=== PATIENT | male | born 1945 | race Caucasian/White ===

== ENCOUNTER 2022-12-29 11:14 | Inpatient (IN) | payer MEDICARE ==
--- NOTE | 2022-12-29 12:17 | ED ---
General Adult HPI - General Chief complaint: Dizziness Stated complaint: SOB Time Seen by Provider: 12/29/22 11:20 Source: patient, family, EMS, RN notes reviewed Mode of arrival: EMS Limitations: no limitations - History of Present Illness Initial comments: 77-year-old male presents emergency Department with chief complaint of weakness. Patient states that he was trying to walk to a football game states he was so weak he couldn't lift his legs up over the curb. He states that he was short of breath. Patient has known CHF, vascular disease he has his right leg wrapped weekly bivascular them appear. Patient states that he always has pain pain is not usual for him at this time. Patient states he has noticed studies been feeling more tired and that he has not been able to sleep because of his leg pain and shortness of breath denies fevers chills cough cold like symptoms. - Related Data Allergies Allergy/AdvReac Type Severity Reaction Status Date / Time No Known Allergies Allergy Verified 12/29/22 11:40 Review of Systems ROS Statement: Those systems with pertinent positive or pertinent negative responses have been documented in the HPI. ROS Other: All systems not noted in ROS Statement are negative. Past Medical History Past Medical History: Chest Pain / Angina Additional Past Medical History / Comment(s): PAD,homeo2 PRN History of Any Multi-Drug Resistant Organisms: None Reported Past Psychological History: No Psychological Hx Reported Smoking Status: Never smoker Past Alcohol Use History: None Reported Past Drug Use History: None Reported General Exam Limitations: no limitations General appearance: alert, in no apparent distress Head exam: Present: atraumatic, normocephalic, normal inspection Eye exam: Present: normal appearance, PERRL, EOMI. Absent: scleral icterus, conjunctival injection, periorbital swelling ENT exam: Present: normal exam, normal oropharynx, mucous membranes moist Neck exam: Present: normal inspection, full ROM. Absent: tenderness, meningismus, lymphadenopathy Respiratory exam: Present: normal lung sounds bilaterally. Absent: respiratory distress, wheezes, rales, rhonchi, stridor Cardiovascular Exam: Present: regular rate, normal rhythm, normal heart sounds. Absent: systolic murmur, diastolic murmur, rubs, gallop, clicks Extremities exam: Present: other (Right leg is wrapped, there is notable Refill) Neurological exam: Present: alert, oriented X3, CN II-XII intact, reflexes normal. Absent: motor sensory deficit Course Vital Signs 12/29/22 12/29/22 12/29/22 11:21 11:30 12:00 Temperature 97.4 F L Pulse Rate 68 57 L 61 Respiratory 22 14 20 Rate Blood Pressure 124/72 124/72 129/73 O2 Sat by Pulse 93 L 98 98 Oximetry 12/29/22 12/29/22 12/29/22 12:30 13:00 13:30 Temperature Pulse Rate 61 66 70 Respiratory 20 18 19 Rate Blood Pressure 130/75 143/97 144/85 O2 Sat by Pulse 98 97 97 Oximetry EKG Findings - EKG Comments: EKG Findings:: EKG performed at 11:23 sinus bradycardia with rate of 56 [place] 225 QRS 97 QT/QTC 518/511 prolonged QT, first-degree block - EKG Results: EKG: interpreted by [facility] Medical Decision Making - Medical Decision Making Was pt. sent in by a medical professional or institution (, PA, ACADEMIC DEPARTMENT CHAIR, urgent care, hospital, or usp...) When possible be specific @ -[No] Did you speak to anyone other than the patient for history (EMS, parent, family, police, friend...)? What history was obtained from this source @ -[No] Did you review nursing and triage notes (agree or disagree)? Why? @ -[I reviewed and agree with nursing and triage notes] Were old charts reviewed (outside hosp., previous admission, EMS record, old EKG, old radiological studies, urgent care reports/EKG's, usp records)? Report findings @ -[No old charts were reviewed] Differential Diagnosis (chest pain, altered mental status, abdominal pain women, abdominal pain men, vaginal bleeding, weakness, fever, dyspnea, syncope, headache, dizziness, GI bleed, back pain, seizure, CVA, palpatations, mental health, musculoskeletal)? @ -[Differential Dyspnea: Coronary syndrome, arrhythmia, tamponade, asthma, COPD, pulmonary embolism, pneumonia, pneumothorax, pulmonary effusion, anaphylaxis, diabetic ketoacidosis, flailed chest, pulmonary contusion, diaphragmatic rupture, anemia, neuromuscular, this is not meant to be an all-inclusive list. ble] EKG interpreted by me (3pts min.). @ -[As above] X-rays interpreted by me (1pt min.). @ -[Chest x-ray shows pulmonary edema, pleural effusion] CT interpreted by me (1pt min.). @ -[None done] U/S interpreted by me (1pt. min.). @ -[None done] What testing was considered but not performed or refused? (CT, X-rays, U/S, labs)? Why? @ -[None] What meds were considered but not given or refused? Why? @ -[None] Did you discuss the management of the patient with other professionals (professionals i.e. , PA, ACADEMIC DEPARTMENT CHAIR, lab, RT, psych nurse, psychosocial rehabilitation counselor, neurology specialist, teacher, credit risk review officer, case reviewer)? Give summary @ -[Dr. Mijares for admission with cardiac consult] Was smoking cessation discussed for >3mins.? @ -[No] Was critical care preformed (if so, how long)? @ -[No] Were there social determinants of health that impacted care today? How? (Homelessness, low income, unemployed, alcoholism, drug addiction, transportation, low edu. Level, literacy, decrease access to med. care, longterm, rehab)? @ -[No] Was there de-escalation of care discussed even if they declined (Discuss DNR or withdrawal of care, Hospice)? DNR status @ -[No] What co-morbidities impacted this encounter? (DM, HTN, Smoking, COPD, CAD, Cancer, CVA, ARF, Chemo, Hep., AIDS, mental health diagnosis, sleep apnea, morbid obesity)? @ -[CHF, prefer that she'll disease] Was patient admitted / discharged? Hospital course, mention meds given and route, prescriptions, significant lab abnormalities, going to OR and other pertinent info. @ -[Admitted patient's found to have acute CHF exacerbation patient was started on Lasix. Patient will have consult to cardiology, echocardiogram. Patient's BMP is 19,500.] Undiagnosed new problem with uncertain prognosis? @ -[No] Drug Therapy requiring intensive monitoring for toxicity (Heparin, Nitro, Insulin, Cardizem)? @ -[No] Were any procedures done? @ -[No] Diagnosis/symptom? @ -[Acute CHF] Acute, or Chronic, or Acute on Chronic? @ -[Acute] Uncomplicated (without systemic symptoms) or Complicated (systemic symptoms)? @ -[, Complicated] Side effects of treatment? @ -[No] Exacerbation, Progression, or Severe Exacerbation? @ -[Exacerbation] Poses a threat to life or bodily function? How? (Chest pain, USA, SD, pneumonia, PE, COPD, DKA, ARF, appy, cholecystitis, CVA, Diverticulitis, Homicidal, Suicidal, threat to staff... and all critical care pts) @ -[Yes poses cardiac, respiratory risk - Lab Data Result diagrams: 12/29/22 12:11 12/29/22 12:11 Lab Results 12/29/22 12/29/22 12/29/22 Range/Units 12:11 12:11 12:11 WBC 7.3 (3.8-10.6) k/uL RBC 4.96 (4.30-5.90) m/uL Hgb 13.9 (13.0-17.5) gm/dL Hct 44.0 (39.0-53.0) % MCV 88.7 (80.0-100.0) fL MCH 28.0 (25.0-35.0) pg MCHC 31.5 (31.0-37.0) g/dL RDW 17.0 H (11.5-15.5) % Plt Count 144 L (150-450) k/uL MPV 11.7 Neutrophils % 80 % Lymphocytes % 7 % Monocytes % 8 % Eosinophils % 2 % Basophils % 0 % Neutrophils # 5.9 (1.3-7.7) k/uL Lymphocytes # 0.5 L (1.0-4.8) k/uL Monocytes # 0.6 (0-1.0) k/uL Eosinophils # 0.1 (0-0.7) k/uL Basophils # 0.0 (0-0.2) k/uL Hypochromasia Slight Anisocytosis Slight PT 13.0 H (9.0-12.0) sec INR 1.3 H (<1.2) APTT 28.9 (22.0-30.0) sec Sodium 141 (137-145) mmol/L Potassium 4.3 (3.5-5.1) mmol/L Chloride 109 H (98-107) mmol/L Carbon Dioxide 22 (22-30) mmol/L Anion Gap 10 mmol/L BUN 30 H (9-20) mg/dL Creatinine 1.42 H (0.66-1.25) mg/dL Est GFR (CKD-EPI)AfAm 56 (>60 ml/min/1.73 sqM) Est GFR (CKD-EPI)NonAf 48 (>60 ml/min/1.73 sqM) Glucose 116 H (74-99) mg/dL Plasma Lactic Acid Anup (0.7-2.0) mmol/L Calcium 8.7 (8.4-10.2) mg/dL Magnesium 2.0 (1.6-2.3) mg/dL Total Bilirubin 1.3 (0.2-1.3) mg/dL AST 42 (17-59) U/L ALT 34 (4-49) U/L Alkaline Phosphatase 151 H (38-126) U/L Troponin I (0.000-0.034) ng/mL NT-Pro-B Natriuret Pep 25979 pg/mL Total Protein 6.4 (6.3-8.2) g/dL Albumin 3.3 L (3.5-5.0) g/dL 12/29/22 12/29/22 Range/Units 12:11 12:11 WBC (3.8-10.6) k/uL RBC (4.30-5.90) m/uL Hgb (13.0-17.5) gm/dL Hct (39.0-53.0) % MCV (80.0-100.0) fL MCH (25.0-35.0) pg MCHC (31.0-37.0) g/dL RDW (11.5-15.5) % Plt Count (150-450) k/uL MPV Neutrophils % % Lymphocytes % % Monocytes % % Eosinophils % % Basophils % % Neutrophils # (1.3-7.7) k/uL Lymphocytes # (1.0-4.8) k/uL Monocytes # (0-1.0) k/uL Eosinophils # (0-0.7) k/uL Basophils # (0-0.2) k/uL Hypochromasia Anisocytosis PT (9.0-12.0) sec INR (<1.2) APTT (22.0-30.0) sec Sodium (137-145) mmol/L Potassium (3.5-5.1) mmol/L Chloride (98-107) mmol/L Carbon Dioxide (22-30) mmol/L Anion Gap mmol/L BUN (9-20) mg/dL Creatinine (0.66-1.25) mg/dL Est GFR (CKD-EPI)AfAm (>60 ml/min/1.73 sqM) Est GFR (CKD-EPI)NonAf (>60 ml/min/1.73 sqM) Glucose (74-99) mg/dL Plasma Lactic Acid Anup 1.1 (0.7-2.0) mmol/L Calcium (8.4-10.2) mg/dL Magnesium (1.6-2.3) mg/dL Total Bilirubin (0.2-1.3) mg/dL AST (17-59) U/L ALT (4-49) U/L Alkaline Phosphatase (38-126) U/L Troponin I 0.029 (0.000-0.034) ng/mL NT-Pro-B Natriuret Pep pg/mL Total Protein (6.3-8.2) g/dL Albumin (3.5-5.0) g/dL Disposition Clinical Impression: CHF exacerbation Disposition: ADMITTED IP TO THIS HOSP Condition: Fair Referrals: Nonstaff,Physician [REFERRING] - 1-2 days Time of Disposition: 15:06
--- NOTE | 2022-12-29 12:25 | XR ---
EXAMINATION TYPE: XR chest 2V DATE OF EXAM: 12/29/2022 COMPARISON: NONE HISTORY: Difficulty breathing TECHNIQUE: Frontal and lateral views of the chest are obtained. FINDINGS: There is marked cardiomegaly and small bilateral pleural effusions. The pulmonary vasculature does no t appear congested. There is no airspace consolidation. There is no pneumothorax. There are median st ernotomy wires otherwise the osseous structures are intact. IMPRESSION: Marked cardiomegaly with small bilateral pleural effusions
[2022-12-29 13:10] LABS: Anisocytosis Slight; Basophils % (A) 0 %; Eosinophils # (A) 0.1 k/uL (0-0.7); Eosinophils % (A) 2 %; HGB 13.9 gm/dL (13.0-17.5); Hypochromasia Slight; Lymphocytes # (A) 0.5 k/uL (1.0-4.8); Lymphocytes % (A) 7 %; MCHC 31.5 g/dL (31.0-37.0); MCV 88.7 fL (80.0-100.0); Mean Platelet Volume 11.7; Monocytes # (A) 0.6 k/uL (0-1.0); Monocytes % (A) 8 %; Neutrophils # (A) 5.9 k/uL (1.3-7.7); Neutrophils % (A) 80 %; RBC 4.96 m/uL (4.30-5.90); WBC 7.3 k/uL (3.8-10.6)
[2022-12-29 13:22] LABS: Platelet Count 144 k/uL (150-450)
[2022-12-29 13:23] LABS: INR 1.3 (<1.2); Partial Thromboplastin Time 28.9 sec (22.0-30.0)
[2022-12-29 13:45] LABS: ALT 34 U/L (4-49); AST 42 U/L (17-59); African American GFR (CKD) 56 (>60 ml/min/1.73 sqM); Albumin 3.3 g/dL (3.5-5.0); Alkaline Phosphatase 151 U/L (38-126); Anion Gap 10 mmol/L; Blood Urea Nitrogen 30 mg/dL (9-20); Calcium 8.7 mg/dL (8.4-10.2); Carbon Dioxide 22 mmol/L (22-30); Chloride 109 mmol/L (98-107); Glucose 116 mg/dL (74-99); Non-African American GFR(CKD) 48 (>60 ml/min/1.73 sqM); Potassium 4.3 mmol/L (3.5-5.1); Sodium 141 mmol/L (137-145); Total Bilirubin 1.3 mg/dL (0.2-1.3); Total Protein 6.4 g/dL (6.3-8.2)
[2022-12-29 15:02] LABS: NT-Pro-B-Type Natriuretic Pept 19500 pg/mL
[2022-12-29] MEDS ORDERED: FUROSEMIDE 10 MG/ML 4 ML VIAL IV STA (15:06)
[2022-12-29] MEDS: FUROSEMIDE 10 MG/ML 4 ML VIAL IV SCH (16:51)
[2022-12-29] MEDS ORDERED: ALPRAZolam 0.5 MG TAB PO PRN (18:39)
--- NOTE | 2022-12-29 18:39 | P.HPIM ---
History of Present Illness H&P Date: 12/29/22 Chief Complaint: Dyspnea/shortness of breath 77-year-old male presents emergency Department with chief complaint of weakness. Patient states that he was trying to walk to a football game states he was so weak he couldn't lift his legs up over the curb. He states that he was short of breath. Patient has known CHF, vascular disease he has his right leg wrapped weekly bivascular them appear. Patient states that he always has pain pain is not usual for him at this time. Patient states he has noticed studies been feeling more tired and that he has not been able to sleep because of his leg pain and shortness of breath denies fevers chills cough cold like symptoms. Blood work reveals to be BCC of 7.3, hemoglobin of 13.9 and platelet count of 144, sodium 141, has 4.3, BUN/creatinine of 30/1.4 to and blood glucose of 116, BNP is elevated at 19,500 with troponin of 0.029 Chest x-ray reveals pulmonary edema and pleural effusion EKG; sinus bradycardia with rate of 56 [place] 225 QRS 97 QT/QTC 518/511 prolonged QT, first-degree block Review of Systems REVIEW OF SYSTEMS: CONSTITUTIONAL: No fever, no malaise, no fatigue. HEENT: No recent visual problems or hearing problems. Denied any sore throat. CARDIOVASCULAR: No chest pain, orthopnea, PND, no palpitations, no syncope. PULMONARY: No shortness of breath, no cough, no hemoptysis. GASTROINTESTINAL: No diarrhea, no nausea, no vomiting, no abdominal pain. NEUROLOGICAL: No headaches, no weakness, no numbness. HEMATOLOGICAL: Denies any bleeding or petechiae. GENITOURINARY: Denies any burning micturition, frequency, or urgency. MUSCULOSKELETAL/RHEUMATOLOGICAL: Denies any joint pain, swelling, or any muscle pain. ENDOCRINE: Denies any polyuria or polydipsia. The rest of the 14-point review of systems is negative. Past Medical History Past Medical History: Chest Pain / Angina Additional Past Medical History / Comment(s): PAD,homeo2 PRN History of Any Multi-Drug Resistant Organisms: None Reported Past Psychological History: No Psychological Hx Reported Smoking Status: Never smoker Past Alcohol Use History: None Reported Past Drug Use History: None Reported Medications and Allergies Home Medications Medication Instructions Recorded Confirmed Type ALPRAZolam [Xanax] 0.5 mg PO DAILY PRN 12/29/22 12/29/22 History Aspirin EC [Ecotrin Low Dose] 81 mg PO DAILY 12/29/22 12/29/22 History Atorvastatin [Lipitor] 40 mg PO HS 12/29/22 12/29/22 History Furosemide [Lasix] 40 mg PO DAILY 12/29/22 12/29/22 History HYDROcodone/APAP 5-325MG [[place] 1 tab PO Q6H PRN 12/29/22 12/29/22 History 5-325] Rivaroxaban [Xarelto] 2.5 mg PO BID 12/29/22 12/29/22 History Sertraline [Zoloft] 100 mg PO DAILY 12/29/22 12/29/22 History Tamsulosin [Flomax] 0.4 mg PO DAILY 12/29/22 12/29/22 History carvediloL [Coreg] 3.125 mg PO BID 12/29/22 12/29/22 History glipiZIDE [Glucotrol] 2.5 mg PO BID 12/29/22 12/29/22 History ramipriL [Altace] 2.5 mg PO DAILY 12/29/22 12/29/22 History Allergies Allergy/AdvReac Type Severity Reaction Status Date / Time No Known Allergies Allergy Verified 12/29/22 17:17 Physical Exam Vitals: Vital Signs Temp Pulse Resp BP Pulse Ox 12/29/22 13:30 70 19 144/85 97 12/29/22 13:00 66 18 143/97 97 12/29/22 12:30 61 20 130/75 98 12/29/22 12:00 61 20 129/73 98 12/29/22 11:30 57 L 14 124/72 98 12/29/22 11:21 97.4 F L 68 22 124/72 93 L Intake and Output 12/29/22 12/29/22 12/29/22 06:59 14:59 22:59 Other: Weight 86.183 kg PHYSICAL EXAMINATION: GENERAL: The patient is alert and oriented x3, not in any acute distress. Well developed, well nourished. HEENT: Pupils are round and equally reacting to light. EOMI. No scleral icterus. No conjunctival pallor. Normocephalic, atraumatic. No pharyngeal erythema. No thyromegaly. CARDIOVASCULAR: S1 and S2 present. No murmurs, rubs, or gallops. PULMONARY: Chest is clear to auscultation, no wheezing or crackles. ABDOMEN: Soft, nontender, nondistended, normoactive bowel sounds. No palpable organomegaly. MUSCULOSKELETAL: No joint swelling or deformity. EXTREMITIES: No cyanosis, clubbing, or pedal edema. NEUROLOGICAL: Gross neurological examination did not reveal any focal deficits. SKIN: No rashes. Results CBC & Chem 7: 12/29/22 12:11 12/29/22 12:11 Labs: Abnormal Lab Results - Last 24 Hours (Table) 12/29/22 12/29/22 12/29/22 Range/Units 12:11 12:11 12:11 RDW 17.0 H (11.5-15.5) % Plt Count 144 L (150-450) k/uL Lymphocytes # 0.5 L (1.0-4.8) k/uL PT 13.0 H (9.0-12.0) sec INR 1.3 H (<1.2) Chloride 109 H (98-107) mmol/L BUN 30 H (9-20) mg/dL Creatinine 1.42 H (0.66-1.25) mg/dL Glucose 116 H (74-99) mg/dL Alkaline Phosphatase 151 H (38-126) U/L Albumin 3.3 L (3.5-5.0) g/dL Assessment and Plan Assessment: 1. Acute exacerbation CHF - Chest x-ray completed in ED reveals pulmonary edema and pleural effusion; BNP is elevated at 19,500 - Patient received Lasix 40 mg IV 1 in ED; we will resume both Lasix 40 mg IV every 12 hours - We will monitor strict DAVID's, daily weights, low salt and fluid restricted diet - Recommend 2-D echo; consult cardiology; appreciate input 2. Acute renal injury; BUN/creatinine elevated at 30/1.42; we will hold off on IV fluid hydration given acute CHF - We will monitor strict DAVID's, daily weights, renal function and electrolytes; avoid nephrotoxins and hypotension - We will consult nephrology if creatinine continues to trend up 3. Diabetes mellitus type 2; patient takes Glucotrol 5 mg twice a day; we will hold oral hypoglycemic agents and monitor Accu-Cheks every before meals and at bedtime with insulin sliding scale while inpatient 4. Hyperlipidemia; Lipitor 40 mg by mouth daily at bedtime 5. Hypertension; Coreg 3.125 mg twice a day 6. Anxiety/depression; Zoloft 100 mg daily, Xanax 0.5 mg daily when necessary 7. Peripheral arterial disease; patient takes aspirin, statin and Xarelto DVT prophylaxis; SCDs/Xarelto CODE STATUS; full code
[2022-12-29 21:01] LABS: Glucose,Whole Blood 111 mg/dL (70-110)
[2022-12-29] MEDS: INSULIN ASPART (NovoLOG) 100 UNIT/ML VIAL SQ SCH (21:01)
[2022-12-29] MEDS: carvediloL 3.125 MG TAB PO SCH (21:29)
[2022-12-29] MEDS: ATORVASTATIN 40 MG TAB PO SCH (21:29)
[2022-12-29] MEDS: RIVAROXABAN 2.5 MG TABLET PO SCH (22:47)
[2022-12-30] MEDS: FUROSEMIDE 10 MG/ML 4 ML VIAL IV SCH ×2 (03:22→14:41)
[2022-12-30 06:34] LABS: Glucose,Whole Blood 109 mg/dL (70-110)
[2022-12-30] MEDS: INSULIN ASPART (NovoLOG) 100 UNIT/ML VIAL SQ SCH ×4 (06:35→21:01)
[2022-12-30 08:03] LABS: Anisocytosis Slight; Basophils % (A) 1 %; Eosinophils # (A) 0.1 k/uL (0-0.7); Eosinophils % (A) 2 %; HCT 43.6 % (39.0-53.0); HGB 13.7 gm/dL (13.0-17.5); Lymphocytes # (A) 0.5 k/uL (1.0-4.8); Lymphocytes % (A) 8 %; MCH 27.5 pg (25.0-35.0); MCHC 31.4 g/dL (31.0-37.0); MCV 87.5 fL (80.0-100.0); Mean Platelet Volume 10.5; Monocytes # (A) 0.5 k/uL (0-1.0); Monocytes % (A) 8 %; Neutrophils # (A) 5.3 k/uL (1.3-7.7); Neutrophils % (A) 80 %; Platelet Count 140 k/uL (150-450); RBC 4.98 m/uL (4.30-5.90); RDW 16.9 % (11.5-15.5); WBC 6.5 k/uL (3.8-10.6)
[2022-12-30 08:35] LABS: African American GFR (CKD) 60 (>60 ml/min/1.73 sqM); Anion Gap 10 mmol/L; Blood Urea Nitrogen 30 mg/dL (9-20); Calcium 8.8 mg/dL (8.4-10.2); Carbon Dioxide 26 mmol/L (22-30); Chloride 105 mmol/L (98-107); Glucose 116 mg/dL (74-99); Non-African American GFR(CKD) 52 (>60 ml/min/1.73 sqM); Potassium 3.9 mmol/L (3.5-5.1); Sodium 141 mmol/L (137-145)
[2022-12-30] MEDS ORDERED: lisinopriL 10 MG TAB PO SCH (09:00)
[2022-12-30] MEDS: SERTRALINE 100 MG TAB PO SCH (09:14)
[2022-12-30] MEDS: carvediloL 3.125 MG TAB PO SCH ×2 (09:14→20:48)
[2022-12-30] MEDS: ASPIRIN 81 MG PO SCH (09:14)
[2022-12-30] MEDS: TAMSULOSIN 0.4 MG CAP.ER.24H PO SCH (09:14)
[2022-12-30 11:21] LABS: Glucose,Whole Blood 114 mg/dL (70-110)
[2022-12-30] MEDS: RIVAROXABAN 2.5 MG TABLET PO SCH ×2 (14:34→20:48)
--- NOTE | 2022-12-30 14:44 | P.CRDCN ---
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 The patient states he was at his nephew's football came, when his legs became weak and he had syncope walking across the field. The patient states he had no prodrome of dizziness or lightheadedness. He also denies any nausea or diaphoresis prior. EMS was notified and he was cleared to drive home. When attempting to get into his car, he felt weak and shaky yet again therefore EMS transported him to the local hospital. DIAGNOSTICS: EKG shows sinus bradycardia with first-degree AV block and prolonged QT interval Chest x-ray shows cardiomegaly with small bilateral pleural effusions Lab data: WBC 6.5, hemoglobin 13.7, hematocrit 43.6, platelet 140, sodium 141, potassium 3.9, BUN 30, creatinine 1.34, BNP 19,500, troponin 0.02, 0.03 REVIEW OF SYSTEMS: No fever or chills. No cough or expectoration. No diaphoresis. Patient denies headache, dizziness, blurred vision, double vision. Patient denies any stomach discomfort. No nausea, vomiting. No hematochezia. No hematemesis. Denies any black stools or blood in his stools. Denies dysuria or hematuria. No muscle weakness or numbness. No chest pain or chest pressure. Mild shortness of breath with exertion. PHYSICAL EXAMINATION: This is a 77-year-old male in no apparent distress at the time of my examination. HEENT: Head is atraumatic, normocephalic. Pupils are equal, round. Sclerae anicteric. Conjunctivae are clear. Mucous membranes of the mouth are moist. Neck is supple. There is no jugular venous distention. No carotid bruit is heard. CHEST EXAMINATION: Lungs are clear to auscultation. No chest wall tenderness is noted on palpation or with deep breathing. HEART EXAMINATION: Heart regular rate and rhythm. S1, S2 heard. No murmurs, gallops or rub. ABDOMEN: Soft, nontender. Bowel sounds are heard. No organomegaly noted. EXTREMITIES: 2+ peripheral pulses with no evidence of peripheral edema and no calf tenderness noted. NEUROLOGIC EXAMINATION: Patient is awake, alert and oriented x3. FINAL ASSESSMENT AND PLAN: Syncope and collapse First-degree AV block and prolonged QT interval History of coronary artery disease, CABG in 2002 Cardiomyopathy, ejection fraction 35% (per patient) PLAN: Resume home cardiac medications and continue IV Lasix Check echocardiogram and Doppler study Monitor for ventricular tachycardia Consideration for AICD implant based on echo results Further recommendations to be based upon clinical course I am dictating on behalf of Dr Juan Landers's history/physical and assessment/plan. Past Medical History Past Medical History: Chest Pain / Angina Additional Past Medical History / Comment(s): PAD,homeo2 PRN History of Any Multi-Drug Resistant Organisms: None Reported Past Psychological History: No Psychological Hx Reported Smoking Status: Never smoker Past Alcohol Use History: None Reported Past Drug Use History: None Reported Medications and Allergies Home Medications Medication Instructions Recorded Confirmed Type ALPRAZolam [Xanax] 0.5 mg PO DAILY PRN 12/29/22 12/29/22 History Aspirin EC [Ecotrin Low Dose] 81 mg PO DAILY 12/29/22 12/29/22 History Atorvastatin [Lipitor] 40 mg PO HS 12/29/22 12/29/22 History Furosemide [Lasix] 40 mg PO DAILY 12/29/22 12/29/22 History HYDROcodone/APAP 5-325MG [[place] 1 tab PO Q6H PRN 12/29/22 12/29/22 History 5-325] Rivaroxaban [Xarelto] 2.5 mg PO BID 12/29/22 12/29/22 History Sertraline [Zoloft] 100 mg PO DAILY 12/29/22 12/29/22 History Tamsulosin [Flomax] 0.4 mg PO DAILY 12/29/22 12/29/22 History carvediloL [Coreg] 3.125 mg PO BID 12/29/22 12/29/22 History glipiZIDE [Glucotrol] 2.5 mg PO BID 12/29/22 12/29/22 History ramipriL [Altace] 2.5 mg PO DAILY 12/29/22 12/29/22 History Allergies Allergy/AdvReac Type Severity Reaction Status Date / Time No Known Allergies Allergy Verified 12/29/22 17:17 Physical Exam Vitals: Vital Signs Temp Pulse Pulse Resp BP BP BP 12/30/22 14:27 70 18 132/75 142/70 12/30/22 08:00 98.5 F 70 18 12/30/22 04:00 75 18 12/30/22 02:00 66 18 12/30/22 00:00 66 18 12/29/22 20:00 98.1 F 71 18 12/29/22 18:00 79 20 143/82 12/29/22 17:00 75 20 151/87 12/29/22 16:30 71 20 145/82 12/29/22 16:00 73 18 135/86 12/29/22 15:30 79 16 161/99 12/29/22 15:00 70 18 155/101 BP BP Pulse Ox 12/30/22 14:27 143/79 98 12/30/22 08:00 154/86 98 12/30/22 04:00 159/103 99 12/30/22 02:00 12/30/22 00:00 132/82 98 12/29/22 20:00 149/91 100 12/29/22 18:00 99 12/29/22 17:00 98 12/29/22 16:30 100 12/29/22 16:00 100 12/29/22 15:30 99 12/29/22 15:00 99 Intake and Output 12/29/22 12/30/22 12/30/22 22:59 06:59 14:59 Output Total 600 Balance -600 Output: Urine 600 Other: Voiding Method Urinal Urinal # Voids 3 Weight 86.183 kg Results 12/30/22 07:40 12/30/22 07:40 Cardiac Enzymes 12/30/22 12/30/22 Range/Units 07:40 11:34 Troponin I 0.046 H* 0.030 (0.000-0.034) ng/mL CBC 12/30/22 Range/Units 07:40 WBC 6.5 (3.8-10.6) k/uL RBC 4.98 (4.30-5.90) m/uL Hgb 13.7 (13.0-17.5) gm/dL Hct 43.6 (39.0-53.0) % Plt Count 140 L (150-450) k/uL Comprehensive Metabolic Panel 12/30/22 Range/Units 07:40 Sodium 141 (137-145) mmol/L Potassium 3.9 (3.5-5.1) mmol/L Chloride 105 (98-107) mmol/L Carbon Dioxide 26 (22-30) mmol/L BUN 30 H (9-20) mg/dL Creatinine 1.34 H (0.66-1.25) mg/dL Glucose 116 H (74-99) mg/dL Calcium 8.8 (8.4-10.2) mg/dL Current Medications Generic Name Dose Route Start Last Admin Trade Name Freq PRN Reason Stop Dose Admin Hydrocodone Bitart/Acetaminophen 1 each 12/29/22 18:39 Hydrocodone/Apap 5-325mg 1 Each Tab PO Q6H PRN Pain Alprazolam 0.5 mg 12/29/22 18:39 Alprazolam 0.5 Mg Tab PO DAILY PRN Anxiety Aspirin 81 mg 12/30/22 09:00 12/30/22 09:14 Aspirin 81 Mg PO 81 mg DAILY MATT Administration Atorvastatin Calcium 40 mg 12/29/22 21:00 12/29/22 21:29 Atorvastatin 40 Mg Tab PO 40 mg HS MATT Administration Carvedilol 3.125 mg 12/29/22 21:00 12/30/22 09:14 Carvedilol 3.125 Mg Tab PO 3.125 mg BID MATT Administration Furosemide 40 mg 12/29/22 15:15 12/30/22 03:22 Furosemide 10 Mg/Ml 4 Ml Vial IV 40 mg Q12H MATT Administration Insulin Aspart 0 unit 12/29/22 21:00 12/30/22 14:23 Insulin Aspart (Novolog) 100 Unit/Ml Vial SQ 01/05/23 21:01 Not Given A[facility]S [facility] Protocol Lisinopril 10 mg 12/30/22 09:00 12/30/22 09:14 Lisinopril 10 Mg Tab PO 10 mg DAILY MATT Administration Rivaroxaban 2.5 mg 12/29/22 21:00 12/30/22 14:34 Rivaroxaban 2.5 Mg Tablet PO Not Given BID [facility] Protocol Sertraline HCl 100 mg 12/30/22 09:00 12/30/22 09:14 Sertraline 100 Mg Tab PO 100 mg DAILY MATT Administration Tamsulosin HCl 0.4 mg 12/30/22 09:00 12/30/22 09:14 Tamsulosin 0.4 Mg Cap.Er.24h PO 0.4 mg DAILY MATT Administration Intake and Output 12/29/22 12/30/22 12/30/22 22:59 06:59 14:59 Output Total 600 Balance -600 Output: Urine 600 Other: Voiding Method Urinal Urinal # Voids 3 Weight 86.183 kg 12/30/22 07:40 12/30/22 07:40
[2022-12-30 16:37] LABS: Glucose,Whole Blood 125 mg/dL (70-110)
--- NOTE | 2022-12-30 17:00 | P.PN ---
Subjective Progress Note Date: 12/30/22 77-year-old male presents emergency Department with chief complaint of weakness. Patient states that he was trying to walk to a football game states he was so weak he couldn't lift his legs up over the curb. He states that he was short of breath. Patient has known CHF, vascular disease he has his right leg wrapped weekly bivascular them appear. Patient states that he always has pain pain is not usual for him at this time. Patient states he has noticed studies been feeling more tired and that he has not been able to sleep because of his leg pain and shortness of breath denies fevers chills cough cold like symptoms. Blood work reveals to be BCC of 7.3, hemoglobin of 13.9 and platelet count of 1 44, sodium 141, has 4.3, BUN/creatinine of 30/1.4 to and blood glucose of 116, BNP is elevated at 19,500 with troponin of 0.029 Chest x-ray reveals pulmonary edema and pleural effusion EKG; sinus bradycardia with rate of 56 OK 225 QRS 97 QT/QTC 518/511 prolonged QT, first-degree block Patient does report some improvement in breathing; remains on IV diuretic therapy -- Lab review shows creatinine trending down from 1.4 1.2 this morning; troponin has trended up but remains within undetermined and drainage of 0.046; we will repeat labs -- Cardiology is on board and recommending to continue with home cardiac medications and IV Lasix; echocardiogram and Doppler study ordered; patient reports an EF of 35%; patient will be considered for AICD implant pending echo results Objective - Vital Signs Vital signs: Vital Signs Temp 98.5 F 12/30/22 08:00 Pulse 70 12/30/22 08:00 Resp 18 12/30/22 08:00 BP 154/86 12/30/22 08:00 Pulse Ox 98 12/30/22 08:00 FiO2 Intake & Output 12/29/22 12/30/22 12/30/22 18:59 06:59 18:59 Output Total 600 Balance -600 Weight 86.183 kg Output: Urine 600 Other: Voiding Method Urinal # Voids 3 - Exam PHYSICAL EXAMINATION: GENERAL: The patient is alert and oriented x3, not in any acute distress. Well developed, well nourished. HEENT: Pupils are round and equally reacting to light. EOMI. No scleral icterus. No conjunctival pallor. Normocephalic, atraumatic. No pharyngeal erythema. No thyromegaly. CARDIOVASCULAR: S1 and S2 present. No murmurs, rubs, or gallops. PULMONARY: Chest is clear to auscultation, no wheezing or crackles. ABDOMEN: Soft, nontender, nondistended, normoactive bowel sounds. No palpable organomegaly. MUSCULOSKELETAL: No joint swelling or deformity. EXTREMITIES: No cyanosis, clubbing, or pedal edema. NEUROLOGICAL: Gross neurological examination did not reveal any focal deficits. SKIN: No rashes. - Labs CBC & Chem 7: 12/30/22 07:40 12/30/22 07:40 Labs: Abnormal Lab Results - Last 24 Hours (Table) 12/29/22 12/29/22 12/29/22 Range/Units 12:11 12:11 12:11 RDW 17.0 H (11.5-15.5) % Plt Count 144 L (150-450) k/uL Lymphocytes # 0.5 L (1.0-4.8) k/uL PT 13.0 H (9.0-12.0) sec INR 1.3 H (<1.2) Chloride 109 H (98-107) mmol/L BUN 30 H (9-20) mg/dL Creatinine 1.42 H (0.66-1.25) mg/dL Glucose 116 H (74-99) mg/dL POC Glucose (mg/dL) (70-110) mg/dL Alkaline Phosphatase 151 H (38-126) U/L Troponin I (0.000-0.034) ng/mL Albumin 3.3 L (3.5-5.0) g/dL 12/29/22 12/30/22 12/30/22 Range/Units 21:00 07:40 07:40 RDW 16.9 H (11.5-15.5) % Plt Count 140 L (150-450) k/uL Lymphocytes # 0.5 L (1.0-4.8) k/uL PT (9.0-12.0) sec INR (<1.2) Chloride (98-107) mmol/L BUN 30 H (9-20) mg/dL Creatinine 1.34 H (0.66-1.25) mg/dL Glucose 116 H (74-99) mg/dL POC Glucose (mg/dL) 111 H (70-110) mg/dL Alkaline Phosphatase (38-126) U/L Troponin I (0.000-0.034) ng/mL Albumin (3.5-5.0) g/dL 12/30/22 12/30/22 Range/Units 07:40 11:19 RDW (11.5-15.5) % Plt Count (150-450) k/uL Lymphocytes # (1.0-4.8) k/uL PT (9.0-12.0) sec INR (<1.2) Chloride (98-107) mmol/L BUN (9-20) mg/dL Creatinine (0.66-1.25) mg/dL Glucose (74-99) mg/dL POC Glucose (mg/dL) 114 H (70-110) mg/dL Alkaline Phosphatase (38-126) U/L Troponin I 0.046 H* (0.000-0.034) ng/mL Albumin (3.5-5.0) g/dL Assessment and Plan Assessment: 1. Acute exacerbation CHF - Chest x-ray completed in ED reveals pulmonary edema and pleural effusion; BNP is elevated at 19,500 - Patient received Lasix 40 mg IV 1 in ED; we will resume both Lasix 40 mg IV every 12 hours - We will monitor strict DAVID's, daily weights, low salt and fluid restricted diet - Recommend 2-D echo; consult cardiology; appreciate input 2. Acute renal injury; BUN/creatinine elevated at 30/1.42; we will hold off on IV fluid hydration given acute CHF - We will monitor strict DAVID's, daily weights, renal function and electrolytes; avoid nephrotoxins and hypotension - We will consult nephrology if creatinine continues to trend up 3. Diabetes mellitus type 2; patient takes Glucotrol 5 mg twice a day; we will hold oral hypoglycemic agents and monitor Accu-Cheks every before meals and at bedtime with insulin sliding scale while inpatient 4. Hyperlipidemia; Lipitor 40 mg by mouth daily at bedtime 5. Hypertension; Coreg 3.125 mg twice a day 6. Anxiety/depression; Zoloft 100 mg daily, Xanax 0.5 mg daily when necessary 7. Peripheral arterial disease; patient takes aspirin, statin and Xarelto DVT prophylaxis; SCDs/Xarelto CODE STATUS; full code
[2022-12-30 20:33] LABS: Glucose,Whole Blood 106 mg/dL (70-110)
[2022-12-30] MEDS: ATORVASTATIN 40 MG TAB PO SCH (20:48)
[2022-12-31] MEDS: HYDROcodone/APAP 5-325MG 1 EACH TAB PO PRN ×2 (00:01→10:11)
[2022-12-31] MEDS: FUROSEMIDE 10 MG/ML 4 ML VIAL IV SCH (04:31)
[2022-12-31 05:58] LABS: Glucose,Whole Blood 101 mg/dL (70-110)
[2022-12-31] MEDS: INSULIN ASPART (NovoLOG) 100 UNIT/ML VIAL SQ SCH ×4 (06:12→20:23)
[2022-12-31 08:13] LABS: African American GFR (CKD) 64 (>60 ml/min/1.73 sqM); Anion Gap 13 mmol/L; Blood Urea Nitrogen 30 mg/dL (9-20); Calcium 9.2 mg/dL (8.4-10.2); Carbon Dioxide 26 mmol/L (22-30); Chloride 103 mmol/L (98-107); Glucose 107 mg/dL (74-99); Non-African American GFR(CKD) 55 (>60 ml/min/1.73 sqM); Potassium 3.9 mmol/L (3.5-5.1); Sodium 142 mmol/L (137-145)
--- NOTE | 2022-12-31 09:33 | P.PN ---
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 The patient states he was at his nephew's football came, when his legs became weak and he had syncope walking across the field. The patient states he had no prodrome of dizziness or lightheadedness. He also denies any nausea or diaphoresis prior. EMS was notified and he was cleared to drive home. When attempting to get into his car, he felt weak and shaky yet again therefore EMS transported him to the local hospital. DIAGNOSTICS: EKG shows sinus bradycardia with first-degree AV block and prolonged QT interval Chest x-ray shows cardiomegaly with small bilateral pleural effusions Lab data: WBC 6.5, hemoglobin 13.7, hematocrit 43.6, platelet 140, sodium 141, potassium 3.9, BUN 30, creatinine 1.34, BNP 19,500, troponin 0.02, 0.03 12/31/2022 Patient examined this morning at the bedside. Patient denies any chest pain or pressure. He denies shortness of breath. He remains on IV Lasix. Denies any dizziness or lightheadedness. No further episodes of syncope since coming to the hospital. Telemetry reveals sinus mechanism. Blood pressure is elevated with a systolic between [id number]. PHYSICAL EXAM: VITAL SIGNS: Reviewed. GENERAL: Well-developed in no acute distress. NECK: Supple. No JVD or thyromegaly LUNGS: Respirations even and unlabored. Lungs essentially clear to auscultation bilaterally. HEART: Regular rate and rhythm. S1 and S2 heard. EXTREMITIES: Normal range of motion. No clubbing or cyanosis. Peripheral pulses intact. No lower extremity edema ASSESSMENT: Syncope and collapse First-degree AV block and prolonged QT interval History of coronary artery disease, CABG in 2002 Hypertension, uncontrolled Cardiomyopathy, ejection fraction 35% (per patient) PLAN: Continue current cardiac medications Increase lisinopril to 20 mg daily for optimal blood pressure control Discontinue IV Lasix Begin oral Lasix 40 mg daily Await results of echocardiogram Continue telemetry monitoring Possible AICD implantation pending echo results Further recommendations pending patient's course Nurse practitioner note has been reviewed by physician. Signing provider agrees with the documented findings, assessment, and plan of care. Objective - Vital Signs Vital signs: Vital Signs Temp 97.7 F 12/31/22 04:00 Pulse 65 12/31/22 04:00 Resp 16 12/31/22 04:00 BP 146/75 12/31/22 04:00 Pulse Ox 100 12/31/22 04:00 FiO2 Intake & Output 12/30/22 12/31/22 12/31/22 18:59 06:59 18:59 Intake Total 540 50 Output Total 1225 900 Balance -685 -850 Weight 84.2 kg Intake: Oral 540 50 Output: Urine 1225 900 Other: Voiding Method Urinal - Labs CBC & Chem 7: 12/30/22 07:40 12/31/22 07:10 Labs: Abnormal Lab Results - Last 24 Hours (Table) 12/30/22 12/30/22 12/31/22 Range/Units 11:19 16:35 07:10 BUN 30 H (9-20) mg/dL Creatinine 1.27 H (0.66-1.25) mg/dL Glucose 107 H (74-99) mg/dL POC Glucose (mg/dL) 114 H 125 H (70-110) mg/dL
[2022-12-31] MEDS: carvediloL 3.125 MG TAB PO SCH ×2 (10:11→20:24)
[2022-12-31] MEDS: SERTRALINE 100 MG TAB PO SCH (10:11)
[2022-12-31] MEDS: FUROSEMIDE 40 MG TAB PO SCH (10:11)
[2022-12-31] MEDS: RIVAROXABAN 2.5 MG TABLET PO SCH ×2 (10:11→20:24)
[2022-12-31] MEDS: TAMSULOSIN 0.4 MG CAP.ER.24H PO SCH (10:11)
[2022-12-31] MEDS: ASPIRIN 81 MG PO SCH (10:11)
[2022-12-31] MEDS: lisinopriL 20 MG TAB PO SCH (10:11)
--- NOTE | 2022-12-31 11:15 | CA ---
Transthoracic Echo Report Name: Kristopher Gil Age: 77 Gender: M : 1945 Exam Date: 12/31/2022 07:39 Exam Location: [place] [facility] Ht (in): 70 Wt (lb): 190 Ordering Physician: Nahum Dai Attending/Referring Phys: Batterboard Setter Emmy Valentine [facility] [place] Procedure CPT: Indications: Heart failure Cardiac Hx: Technical Quality: Fair Contrast 1: Total Dose (mL): Contrast 2: Total Dose (mL): MEASUREMENTS (Male / Female) Normal Values 2D ECHO LV Diastolic Diameter PLAX 4.8 cm 4.2 - 5.9 / 3.9 - 5.3 cm LV Systolic Diameter PLAX 4.0 cm IVS Diastolic Thickness 0.9 cm 0.6 - 1.0 / 0.6 - 0.9 cm LVPW Diastolic Thickness 0.8 cm 0.6 - 1.0 / 0.6 - 0.9 cm LV Relative Wall Thickness 0.4 LVOT Diameter 2.0 cm LV Diastolic Volume MOD BP 127.0 cm??? 67 - 155 / 56 - 104 cm??? LV Systolic Volume MOD BP 85.5 cm??? 22 - 58 / 19 - 49 cm??? LV Ejection Fraction MOD BP 32.7 % >= 55 % LV Cardiac Index MOD BP 1299.4 cm???/min???m??? LV Diastolic Volume MOD 4C 132.9 cm??? LV Systolic Volume MOD 4C 87.9 cm??? LV Ejection Fraction MOD 4C 33.9 % LV Cardiac Index MOD 4C 1408.3 cm???/min???m??? LV Diastolic Length 4C 10.0 cm LV Systolic Length 4C 9.4 cm LV Diastolic Volume MOD 2C 121.1 cm??? LV Systolic Volume MOD 2C 80.2 cm??? LV Ejection Fraction MOD 2C 33.7 % LV Cardiac Index MOD 2C 1277.5 cm???/min???m??? LV Diastolic Length 2C 10.0 cm LV Systolic Length 2C 9.8 cm Ascending Aorta Diameter 3.2 cm DOPPLER AV Peak Velocity 125.8 cm/s AV Peak Gradient 6.3 mmHg AV Mean Velocity 100.2 cm/s AV Mean Gradient 4.3 mmHg AV Velocity Time Integral 25.7 cm LVOT Peak Velocity 85.9 cm/s LVOT Peak Gradient 3.0 mmHg LVOT Velocity Time Integral 16.3 cm LVOT Stroke Volume 48.9 cm??? LVOT Stroke Volume Index 23.9 ml/m??? LVOT Cardiac Index 1528.7 cm???/min???m??? AV Area Cont Eq vti 1.9 cm??? AV Area Cont Eq pk 2.1 cm??? MR Peak Velocity 470.8 cm/s MR Peak Gradient 88.7 mmHg Mitral E Point Velocity 95.1 cm/s Mitral A Point Velocity 76.5 cm/s Mitral E to A Ratio 1.2 MV Deceleration Time 213.5 ms LV E' Lateral Velocity 7.2 cm/s Mitral E to LV E' Lateral Ratio 13.3 LV E' Septal Velocity 4.3 cm/s Mitral E to LV E' Septal Ratio 22.0 TR Peak Velocity 342.8 cm/s TR Peak Gradient 47.0 mmHg Right Atrial Pressure 15.0 mmHg Pulmonary Artery Systolic Pressu 62.0 mmHg Right Ventricular Systolic Press 62.0 mmHg FINDINGS Left Ventricle Severely increased left ventricular systolic volume. Moderately decreased left ventricular ejection fraction. Left ventricular cavity size normal. Left ventricular wall thickness normal. Left ventricular ejection fraction is estimated at 30-35%. Hypokinetic inferior wall. Hypokinetic inferoseptum, anteroseptum wall. [place] hypokinetic. Right Ventricle Severe right ventricular dilatation. Severe pulmonary hypertension. Right Atrium Moderate right atrial dilatation. Left Atrium Mild left atrial dilatation. Mitral Valve Structurally normal mitral valve. [id number] mitral regurgitation. Aortic Valve Trileaflet aortic valve. Aortic valve sclerosis. No aortic regurgitation. Tricuspid Valve Structurally normal tricuspid valve. Moderate tricuspid regurgitation. Pulmonic Valve Structurally normal pulmonic valve. Mild pulmonic regurgitation. Pericardium No pericardial effusion. Aorta Normal size aortic root and proximal ascending aorta. CONCLUSIONS Ischemic cardiomyopathy with moderate to severe LV systolic dysfunction with an ejection fraction of 30-35% Severe pulmonary hypertension Mild to moderate mitral regurgitation Previewed by: Dr. Gt Brumfield MD (Electronically Signed) Final Date: 31 December 2022 11:15
[2022-12-31 11:30] LABS: Glucose,Whole Blood 117 mg/dL (70-110)
--- NOTE | 2022-12-31 14:44 | P.PN ---
Subjective Progress Note Date: 12/31/22 This is a pleasant 77-year-old male who presents with weakness patient has no history of CHF and valvular heart disease and he also has a chronic wound to his right ankle. He follows with vascular services [facility] in [place] for this. His dressing was due to be changed and family provided the information for his vascular doctor and will follow-up regarding current wound care orders. Patient remains on IV Lasix overnight and was transitioned to oral Lasix today. His creatinine has improved 1.27. Echocardiogram has been done showing ischemic cardiomyopathy with moderate to severe left ventricular systolic dysfunction with an EF of 30-35% with severe pulmonary hypertension mild to moderate mitral regurgitation and moderate tricuspid regurgitation. Patient is being considered for an AICD. Review of Systems Constitutional: Denied any fatigue denied any fever. Cardio vascular: denied any chest pain, palpitations Gastrointestinal: denied any nausea, vomiting, diarrhea Pulmonary: Denied any shortness of breath cough Neurologic denied any new focal deficits All inpatient medications were reviewed and appropriate changes in these medications as dictated in the interval history and assessment and plan. PHYSICAL EXAMINATION: GENERAL: The patient is alert and oriented x3, not in any acute distress. Well developed, well nourished. HEENT: Pupils are round and equally reacting to light. EOMI. No scleral icterus. No conjunctival pallor. Normocephalic, atraumatic. No pharyngeal erythema. No thyromegaly. CARDIOVASCULAR: S1 and S2 present. No murmurs, rubs, or gallops. PULMONARY: Chest is clear to auscultation, no wheezing or crackles. ABDOMEN: Soft, nontender, nondistended, normoactive bowel sounds. No palpable organomegaly. MUSCULOSKELETAL: No joint swelling or deformity. EXTREMITIES: No cyanosis, clubbing, Left lower extremity pitting edema. NEUROLOGICAL: Gross neurological examination did not reveal any focal deficits. SKIN: Right ankle wound with bloody drainage Assessment Syncopal event with collapse EKG showing First degree heart block Ischemic cardiomyopathy EF 30-35% Acute exacerbation CHF systolic dysfunction with severe pulmonary hypertension and valvular heart disease Acute renal injury due to volume overload patient is being treated with IV Lasix with improvement in his creatinine Chronic Hypoxic respiratory failure with 2 L of oxygen as needed via nasal ca nnula Diabetes mellitus type 2 oral hypoglycemic agents on hold and patient is on Accu-Cheks before meals and at bedtime with sliding scale insulin. Hyperlipidemia Hypertension Anxiety/depression Peripheral arterial disease; patient takes aspirin, statin and Xarelto Non healing wound to the right ankle secondary to PAD DVT prophylaxis; SCDs/Xarelto CODE STATUS; full code Plan Echocardiogram completed pending cardiology recommendations regarding possible AICD Transitioned to oral lasix and F/U labs in AM Local wound care to the right ankle wound patient follows with vascular/wound care services in [place] The impression and plan of care has been dictated by Jenn Dumont, Nurse Practitioner as directed. Dr. Parker MD I have performed a history and physical examination and medical decision making of this patient, discussed the same with the dictator, and agree with the dictators assessment and plan as written, documented as a scribe. Based on total visit time, I have performed more than 50% of this visit. Objective - Vital Signs Vital signs: Vital Signs Temp 97.7 F 12/31/22 04:00 Pulse 65 12/31/22 04:00 Resp 16 12/31/22 04:00 BP 146/75 12/31/22 04:00 Pulse Ox 100 12/31/22 04:00 FiO2 Intake & Output 12/30/22 12/31/22 12/31/22 18:59 06:59 18:59 Intake Total 540 50 Output Total 1225 900 Balance -685 -850 Weight 84.2 kg Intake: Oral 540 50 Output: Urine 1225 900 Other: Voiding Method Urinal - Labs CBC & Chem 7: 12/30/22 07:40 12/31/22 07:10 Labs: Abnormal Lab Results - Last 24 Hours (Table) 12/30/22 12/30/22 12/31/22 Range/Units 11:19 16:35 07:10 BUN 30 H (9-20) mg/dL Creatinine 1.27 H (0.66-1.25) mg/dL Glucose 107 H (74-99) mg/dL POC Glucose (mg/dL) 114 H 125 H (70-110) mg/dL Assessment and Plan Time with Patient: Less than 30
[2022-12-31 14:53] VITALS: BMI 26.6
[2022-12-31 16:23] LABS: Glucose,Whole Blood 101 mg/dL (70-110)
[2022-12-31 20:02] LABS: Glucose,Whole Blood 105 mg/dL (70-110)
[2022-12-31] MEDS: ATORVASTATIN 40 MG TAB PO SCH (20:24)
[2023-01-01] MEDS: HYDROcodone/APAP 5-325MG 1 EACH TAB PO PRN ×2 (01:54→11:18)
[2023-01-01 06:09] LABS: Glucose,Whole Blood 103 mg/dL (70-110)
[2023-01-01] MEDS: INSULIN ASPART (NovoLOG) 100 UNIT/ML VIAL SQ SCH ×4 (06:30→20:47)
[2023-01-01] MEDS: SERTRALINE 100 MG TAB PO SCH (07:57)
[2023-01-01] MEDS: carvediloL 3.125 MG TAB PO SCH ×2 (07:57→20:54)
[2023-01-01] MEDS: ASPIRIN 81 MG PO SCH (07:57)
[2023-01-01] MEDS: FUROSEMIDE 40 MG TAB PO SCH (07:57)
[2023-01-01] MEDS: TAMSULOSIN 0.4 MG CAP.ER.24H PO SCH (07:57)
[2023-01-01] MEDS: lisinopriL 20 MG TAB PO SCH (07:57)
[2023-01-01] MEDS: RIVAROXABAN 2.5 MG TABLET PO SCH ×2 (07:57→21:43)
[2023-01-01 08:09] LABS: African American GFR (CKD) 68 (>60 ml/min/1.73 sqM); Anion Gap 10 mmol/L; Blood Urea Nitrogen 30 mg/dL (9-20); Calcium 8.9 mg/dL (8.4-10.2); Carbon Dioxide 28 mmol/L (22-30); Chloride 104 mmol/L (98-107); Glucose 111 mg/dL (74-99); Non-African American GFR(CKD) 59 (>60 ml/min/1.73 sqM); Potassium 3.8 mmol/L (3.5-5.1); Sodium 142 mmol/L (137-145)
--- NOTE | 2023-01-01 11:03 | P.PN ---
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 The patient states he was at his nephew's football came, when his legs became weak and he had syncope walking across the field. The patient states he had no prodrome of dizziness or lightheadedness. He also denies any nausea or diaphoresis prior. EMS was notified and he was cleared to drive home. When attempting to get into his car, he felt weak and shaky yet again therefore EMS transported him to the local hospital. DIAGNOSTICS: EKG shows sinus bradycardia with first-degree AV block and prolonged QT interval Chest x-ray shows cardiomegaly with small bilateral pleural effusions Lab data: WBC 6.5, hemoglobin 13.7, hematocrit 43.6, platelet 140, sodium 141, potassium 3.9, BUN 30, creatinine 1.34, BNP 19,500, troponin 0.02, 0.03 12/31/2022 Patient examined this morning at the bedside. Patient denies any chest pain or pressure. He denies shortness of breath. He remains on IV Lasix. Denies any dizziness or lightheadedness. No further episodes of syncope since coming to the hospital. Telemetry reveals sinus mechanism. Blood pressure is elevated with a systolic between [id number]. 01/01/2023 Patient examined this morning at the bedside. Patient denies chest pain or pressure. He denies shortness of breath. Telemetry reveals sinus mechanism. Echocardiogram completed revealing ejection fraction 30-35%. PHYSICAL EXAM: VITAL SIGNS: Reviewed. GENERAL: Well-developed in no acute distress. NECK: Supple. No JVD or thyromegaly LUNGS: Respirations even and unlabored. Lungs essentially clear to auscultation bilaterally. HEART: Regular rate and rhythm. S1 and S2 heard. EXTREMITIES: Normal range of motion. No clubbing or cyanosis. Peripheral pulses intact. No lower extremity edema ASSESSMENT: Syncope and collapse, suspected VF/VT First-degree AV block and prolonged QT interval History of coronary artery disease, CABG in 2002 Hypertension, uncontrolled Cardiomyopathy, ejection fraction 30-35% PLAN: Continue current cardiac medications Discussed AICD implantation with patient. Patient would like to follow up with his primary supervisor paint roller covers in [place] to have this performed Recommend LifeVest in the interim to prevent sudden cardiac as patient had recent cardiac event with syncope likely secondary to VF/VT. Patient may be discharged home this evening and follow up with his primary supervisor paint roller covers. Nurse practitioner note has been reviewed by physician. Signing provider agrees with the documented findings, assessment, and plan of care. Objective - Vital Signs Vital signs: Vital Signs Temp 97.4 F L 01/01/23 08:05 Pulse 61 01/01/23 08:05 Resp 16 01/01/23 08:05 BP 147/70 01/01/23 08:05 Pulse Ox 99 01/01/23 08:05 FiO2 Intake & Output 12/31/22 01/01/23 01/01/23 18:59 06:59 18:59 Intake Total 118 10 10 Output Total 750 575 Balance -632 -565 10 Weight 84.2 kg 83.2 kg Intake: IV 10 10 0.9 10 Invasive Line 1 10 Oral 118 0 Output: Urine 750 575 Other: Voiding Method Urinal Urinal Urinal - Labs CBC & Chem 7: 12/30/22 07:40 01/01/23 07:20 Labs: Abnormal Lab Results - Last 24 Hours (Table) 12/31/22 01/01/23 Range/Units 11:29 07:20 BUN 30 H (9-20) mg/dL Glucose 111 H (74-99) mg/dL POC Glucose (mg/dL) 117 H (70-110) mg/dL
[2023-01-01 11:13] LABS: Glucose,Whole Blood 120 mg/dL (70-110)
--- NOTE | 2023-01-01 15:19 | P.PN ---
Subjective Progress Note Date: 01/01/23 (') This is a pleasant 77-year-old male who presents with weakness patient has no history of CHF and valvular heart disease and he also has a chronic wound to his right ankle. He follows with vascular services [facility] in [place] for this. His dressing was due to be changed and family provided the information for his vascular doctor and will follow-up regarding current wound care orders. Patient remains on IV Lasix overnight and was transitioned to oral Lasix today. His creatinine has improved 1.27. Echocardiogram has been done showing ischemic cardiomyopathy with moderate to severe left ventricular systolic dysfunction with an EF of 30-35% with severe pulmonary hypertension mild to moderate mitral regurgitation and moderate tricuspid regurgitation. Patient is being considered for an AICD. 01/01/2023 Patient is resting in bed today, at bedside. Remains on 2L of oxygen. Remains on oral lasix Echocardiogram reveals an EF 30-35% with severe pulmonary hypertension. Patient will receive a wearable defibrillator vest and then will be discharged home. 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 Renal function today is normal at 1.20. Review of Systems Constitutional: Denied any fatigue denied any fever. Cardio vascular: denied any chest pain, palpitations Gastrointestinal: denied any nausea, vomiting, diarrhea Pulmonary: Denied any shortness of breath cough Neurologic denied any new focal deficits All inpatient medications were reviewed and appropriate changes in these medications as dictated in the interval history and assessment and plan. PHYSICAL EXAMINATION: GENERAL: The patient is alert and oriented x3, not in any acute distress. Well developed, well nourished. HEENT: Pupils are round and equally reacting to light. EOMI. No scleral icterus. No conjunctival pallor. Normocephalic, atraumatic. No pharyngeal erythema. No thyromegaly. CARDIOVASCULAR: S1 and S2 present. No murmurs, rubs, or gallops. PULMONARY: Chest is clear to auscultation, no wheezing or crackles. ABDOMEN: Soft, nontender, nondistended, normoactive bowel sounds. No palpable or ganomegaly. MUSCULOSKELETAL: No joint swelling or deformity. EXTREMITIES: No cyanosis, clubbing, Left lower extremity pitting edema. NEUROLOGICAL: Gross neurological examination did not reveal any focal deficits. SKIN: Right ankle wound with bloody drainage Assessment Syncopal event with collapse EKG showing First degree heart block Ischemic cardiomyopathy EF 30-35% Acute exacerbation CHF systolic dysfunction with severe pulmonary hypertension and valvular heart disease Acute renal injury due to volume overload patient is being treated with IV Lasix with improvement in his creatinine Chronic Hypoxic respiratory failure with 2 L of oxygen as needed via nasal cannula Diabetes mellitus type 2 oral hypoglycemic agents on hold and patient is on Accu-Cheks before meals and at bedtime with sliding scale insulin. Hyperlipidemia Hypertension Anxiety/depression Peripheral arterial disease; patient takes aspirin, statin and Xarelto Non healing wound to the right ankle secondary to PAD DVT prophylaxis; SCDs/Xarelto CODE STATUS; full code Plan Patient to receive a wearable defibrillator vest. Patient will discharge home once he receives the lifevest and will f/u with his known chemist water purification outpatient to discuss an implantable defibrillator. He has an appt scheduled for Saturday. Renal function stable repeat labs outpatient. Local wound care to the right ankle wound patient follows with vascular/wound care services in [place]; continue with nonadherent and kerlex change daily or as needed. Patient to discharge in the next 24 hours. The impression and plan of care has been dictated by Jenn Dumont, Nurse Practitioner as directed. Dr. Parker MD I have performed a history and physical examination and medical decision making of this patient, discussed the same with the dictator, and agree with the dictators assessment and plan as written, documented as a scribe. Based on total visit time, I have performed more than 50% of this visit. Objective - Vital Signs Vital signs: Vital Signs Temp 97.4 F L 01/01/23 08:05 Pulse 61 01/01/23 08:05 Resp 16 01/01/23 14:00 BP 147/70 01/01/23 08:05 Pulse Ox 99 01/01/23 08:05 FiO2 Intake & Output 12/31/22 01/01/23 01/01/23 18:59 06:59 18:59 Intake Total 118 10 130 Output Total 750 575 Balance -632 -565 130 Weight 84.2 kg 83.2 kg Intake: IV 10 20 0.9 10 Invasive Line 1 20 Oral 118 110 Output: Urine 750 575 Other: Voiding Method Urinal Urinal Urinal - Labs CBC & Chem 7: 12/30/22 07:40 01/01/23 07:20 Labs: Abnormal Lab Results - Last 24 Hours (Table) 01/01/23 01/01/23 Range/Units 07:20 11:05 BUN 30 H (9-20) mg/dL Glucose 111 H (74-99) mg/dL POC Glucose (mg/dL) 120 H (70-110) mg/dL Assessment and Plan Time with Patient: Less than 30
[2023-01-01 16:17] LABS: Glucose,Whole Blood 136 mg/dL (70-110)
[2023-01-01 19:57] LABS: Glucose,Whole Blood 112 mg/dL (70-110)
[2023-01-01] MEDS: ATORVASTATIN 40 MG TAB PO SCH (20:54)
[2023-01-02] MEDS: HYDROcodone/APAP 5-325MG 1 EACH TAB PO PRN (05:05)
[2023-01-02] MEDS: INSULIN ASPART (NovoLOG) 100 UNIT/ML VIAL SQ SCH ×2 (06:30→12:14)
[2023-01-02] MEDS: FUROSEMIDE 40 MG TAB PO SCH (09:10)
[2023-01-02] MEDS: lisinopriL 20 MG TAB PO SCH (09:10)
[2023-01-02] MEDS: TAMSULOSIN 0.4 MG CAP.ER.24H PO SCH (09:10)
[2023-01-02] MEDS: RIVAROXABAN 2.5 MG TABLET PO SCH (09:10)
[2023-01-02] MEDS: carvediloL 3.125 MG TAB PO SCH (09:10)
[2023-01-02] MEDS: ASPIRIN 81 MG PO SCH (09:10)
[2023-01-02] MEDS: SERTRALINE 100 MG TAB PO SCH (09:10)
[2023-01-02 09:11] VITALS: RESP 20
[2023-01-02 11:28] LABS: Glucose,Whole Blood 149 mg/dL (70-110)
[2023-01-02 11:57] VITALS: BP 151/81; PULSE 56; TEMP 97.7
[2023-01-02 16:38] LABS: Glucose,Whole Blood 100 mg/dL (70-110)
--- NOTE | 2023-01-05 08:50 | P.DS ---
Providers Date of admission: 12/29/22 15:55 Attending physician: Shira Mijares MD Consults: 12/29/22 15:06 Consult Physician Routine Consulting Provider: Juan Landers Consult Reason/Comments: chf Do you want consulting provider notified?: Yes Primary care physician: Nestor De Santiago DO Hospital Course: Final Diagnosis Syncopal event with collapse EKG showing First degree heart block Ischemic cardiomyopathy EF 30-35% patient received a lifevest. Acute exacerbation CHF systolic dysfunction with severe pulmonary hypertension and valvular heart disease Acute renal injury due to volume overload patient is being treated with IV Lasix with improvement in his creatinine Chronic Hypoxic respiratory failure with 2 L of oxygen as needed via nasal cannula Diabetes mellitus type 2 oral hypoglycemic agents on hold and patient is on Accu-Cheks before meals and at bedtime with sliding scale insulin. Hyperlipidemia Hypertension Anxiety/depression Peripheral arterial disease; patient takes aspirin, statin and Xarelto Non healing wound to the right ankle secondary to PAD Discharge Disposition Patient is stable for discharge home. Patient has received a [employer] lifevest and recommended to see his usual electrophysiologist for further discussion regarding an implanted AICD. Patient has an appt today with his vascular specialist for wound care to the right leg. Patient to continue all same home medications. Hospital Course This is a pleasant 77-year-old male who presents with syncope while ambulating. Patient denies experiencing any dizziness or lightheadedness prior to. Patient attempted to drive home from the football event he was however he was shaky and weak. He came to the hospital by ambulamce. Patient has history of CHF and valvular heart disease and he also has a chronic wound to his right ankle. He follows with vascular services in [place] for this. Initial work up EKG shows sinus bradycardia with first-degree AV block and prolonged QT interval. Chest x- ray shows cardiomegaly with small bilateral pleural effusions. Labs reveal, WBC 6.5, hemoglobin 13.7, hematocrit 43.6, platelet 140, sodium 141, potassium 3.9, BUN 30, creatinine 1.34, BNP 19,500, troponin 0.02, 0.03. Patient admitted to the hospital and started on IV lasix for the CHF exacerbation. Echocardiogram has been done showing ischemic cardiomyopathy with moderate to severe left ventricular systolic dysfunction with an EF of 30-35% with severe pulmonary hypertension mild to moderate mitral regurgitation and moderate tricuspid regurgitation. Patient is being considered for an AICD prior to discharge patient received a wearable defibrillator through [employer]. He was transitioned to oral lasix. Creatinine improved. Patient has been instructed to follow up with his electrophysiologist out of [facility] which patient already has an appt scheduled for This upcoming saturday. Patient has been up ambulating no further reports of syncope, dizziness or lightheadedness. No chest pain, No shortness of breath. Focal neurological exam is negative. Alert x 3. Cleared for discharge home. Please see medication reconciliation for a list of current medication. Thank you for allowing us to participate in the care of this patient. The impression and plan of care has been dictated by Jenn Dumont Nurse Practitioner as directed. Dr. Parker MD I have performed a history and physical examination and medical decision making of this patient, discussed the same with the dictator, and agree with the dictators assessment and plan as written, documented as a scribe. Based on total visit time, I have performed more than 50% of this visit. Patient Condition at Discharge: Stable Plan - Discharge Summary New Discharge Prescriptions: Continue carvediloL [Coreg] 3.125 mg PO BID Aspirin EC [Ecotrin Low Dose] 81 mg PO DAILY Tamsulosin [Flomax] 0.4 mg PO DAILY Sertraline [Zoloft] 100 mg PO DAILY Atorvastatin [Lipitor] 40 mg PO HS ramipriL [Altace] 2.5 mg PO DAILY glipiZIDE [Glucotrol] 2.5 mg PO BID Rivaroxaban [Xarelto] 2.5 mg PO BID Furosemide [Lasix] 40 mg PO DAILY ALPRAZolam [Xanax] 0.5 mg PO DAILY PRN PRN Reason: Anxiety HYDROcodone/APAP 5-325MG [[place] 5-325] 1 tab PO Q6H PRN PRN Reason: Pain Discharge Medication List ALPRAZolam [Xanax] 0.5 mg PO DAILY PRN 12/29/22 [History] Aspirin EC [Ecotrin Low Dose] 81 mg PO DAILY 12/29/22 [History] Atorvastatin [Lipitor] 40 mg PO HS 12/29/22 [History] Furosemide [Lasix] 40 mg PO DAILY 12/29/22 [History] HYDROcodone/APAP 5-325MG [[place] 5-325] 1 tab PO Q6H PRN 12/29/22 [History] Rivaroxaban [Xarelto] 2.5 mg PO BID 12/29/22 [History] Sertraline [Zoloft] 100 mg PO DAILY 12/29/22 [History] Tamsulosin [Flomax] 0.4 mg PO DAILY 12/29/22 [History] carvediloL [Coreg] 3.125 mg PO BID 12/29/22 [History] glipiZIDE [Glucotrol] 2.5 mg PO BID 12/29/22 [History] ramipriL [Altace] 2.5 mg PO DAILY 12/29/22 [History] Follow up Appointment(s)/Referral(s): Nonstaff,Physician [REFERRING] - 1-2 days Nestor De Santiago DO [Primary Care Provider] - 1-2 Days Juan Landers MD [STAFF PHYSICIAN] - 1 Week Ambulatory/Diagnostic Orders: Basic Metabolic Panel [LAB.AMB] Time Frame: 3 Days, Location: None Selected Activity/Diet/Wound Care/Special Instructions: Keep your wound care appt at the [place] wound clinic today at 330. Follow up with your known [employer] regarding AICD and keep the same appt for this upcoming Saturday. Dr Portillo information has been provided to you if you decide to see cardiology associates Repeat labs in 2 to 3 days Follow up with your primary provider in 1 to 2 days Patient is discharged with wearable defibrillator vest through [employer]. Discharge Disposition: HOME SELF-CARE
== END 2023-01-02 12:58 | disposition home or self-care (01) | DRG 291 ==
LOC: EC 11:14 → 3SCARD 15:55
PROVIDERS: ADMIT Internal Medicine; ATTEND Internal Medicine
DX: I11.0 Hypertensive heart disease with heart failure (principal); I50.21 Acute systolic (congestive) heart failure; N17.9 Acute kidney failure, unspecified; J96.11 Chronic respiratory failure with hypoxia; L97.319 Non-pressure chronic ulcer of right ankle with unspecified severity; I27.20 Pulmonary hypertension, unspecified; E11.51 Type 2 diabetes mellitus with diabetic peripheral angiopathy without gangrene; E11.622 Type 2 diabetes mellitus with other skin ulcer; Z28.310 Unvaccinated for COVID-19; I25.5 Ischemic cardiomyopathy; I44.0 Atrioventricular block, first degree; I25.10 Atherosclerotic heart disease of native coronary artery without angina pectoris; I08.1 Rheumatic disorders of both mitral and tricuspid valves; E78.5 Hyperlipidemia, unspecified; F32.A Depression, unspecified; F41.9 Anxiety disorder, unspecified; Z79.01 Long term (current) use of anticoagulants; Z79.82 Long term (current) use of aspirin; Z79.84 Long term (current) use of oral hypoglycemic drugs; Z79.899 Other long term (current) drug therapy; Z95.1 Presence of aortocoronary bypass graft
CPT/HCPCS: 36415; 71046; 80048; 80053; 83605; 83735; 83880; 84484; 85025; 85610; 85730; 93005; 93306; 96374; 96376; 99285